=== PATIENT | female | born 1945 | race Caucasian/White ===

== ENCOUNTER 2019-07-02 10:12 | Outpatient (CLI) | payer MEDICARE, OTHER | END 2019-07-02 23:59 | disposition home or self-care (01) | LOC: CVU 10:12 | PROVIDERS: ATTEND Family Medicine | DX: I08.1 Rheumatic disorders of both mitral and tricuspid valves (principal); G45.9 Transient cerebral ischemic attack, unspecified | CPT/HCPCS: 93306 ==